=== PATIENT | female | born 1995 | race Caucasian/White ===

== ENCOUNTER 2023-08-28 03:23 | Inpatient (IN) | payer OTHER ==
[2023-08-28] VITALS (46 sets, daily range): BP systolic 90–138; BP diastolic 53–80; TEMP 98.6; O2SAT 96–98
[~2023-08-28] VITALS: Ht 157.5 cm; Wt 70.2 kg
[2023-08-28] MEDS ORDERED: PRENTAB9 PO (03:48)
[2023-08-28] MEDS ORDERED: HOME MED LIST COMPLETE! XX SCH (03:50)
[2023-08-28 04:58] LABS: HEMATOCRIT 34.1 % (36.0-47.0); HEMOGLOBIN 11.1 g/dl (12.0-15.5); MEAN CORPUSCULAR HEMOGLOBIN 26.9 pg (27.0-33.0); MEAN CORPUSCULAR HGB CONC 32.6 g/dl (32.0-36.5); MEAN CORPUSCULAR VOLUME 82.6 fl (80.0-96.0); PLATELET COUNT, AUTOMATED 276 10^3/uL (150-450); RED BLOOD COUNT 4.13 10^6/uL (4.00-5.40)
[2023-08-28] MEDS ORDERED: LACTATED RINGER'S 1000 ML IV STA (05:41)
[2023-08-28] MEDS ORDERED: LIDOCAINE 1% MDV 20ML VIAL INFIL PRN (05:45)
[2023-08-28] MEDS ORDERED: CARBOPROST TROMETHAMINE 250 MCG/ML AMP IM PRN (05:45)
[2023-08-28] MEDS ORDERED: LR 1,000 ML IV SCH ×2 (05:45→19:10)
[2023-08-28] MEDS ORDERED: OXYTOCIN INJ 10UNITS/ML 1ML VIAL IM PRN (05:45)
[2023-08-28] MEDS ORDERED: TRANEXAMIC ACID INJection 1,000 MG in NS 100 ML IV PRN (05:45)
[2023-08-28] MEDS ORDERED: OXYTOCIN DRIP 30 UNITS in IV 1 EA IV SCH ×2 (05:45→18:55)
[2023-08-28] MEDS ORDERED: METHYLERGONOVINE MALEATE 0.2MG/ML 1ML VIAL IM PRN ×2 (05:45→18:55)
[2023-08-28] MEDS ORDERED: OXYTOCIN INJ 10UNITS/ML 1ML VIAL IV PRN (05:45)
[2023-08-28] MEDS ORDERED: OXYTOCIN DRIP 30 UNITS in IV 1 EA IV PRN ×6 (05:45)
[2023-08-28] MEDS ORDERED: EPIDURAL/PCA KEYS XX PRN (05:55)
[2023-08-28] MEDS ORDERED: ONDANSETRON 4MG 2ML VIAL IV PRN ×3 (05:55→19:10)
[2023-08-28] MEDS ORDERED: diphenhydrAMINE 50MG/ML VIAL IV PRN ×2 (05:55→19:10)
[2023-08-28] MEDS ORDERED: ePHEDrine SULFATE 25 MG/5 ML(5MG/ML) SYRINGE IVP PRN (05:55)
[2023-08-28] MEDS ORDERED: NALOXONE INJ 0.4MG/1ML VIAL IV PRN ×3 (05:55→19:10)
[2023-08-28] MEDS ORDERED: LR 500 ML IV PRN (05:55)
[2023-08-28] MEDS: FENTANYL/ROPIVACAINE/NACL BAG 100 ML EPIDURAL SCH ×2 (06:29→14:13)
[2023-08-28] MEDS: LR 1,000 ML IV SCH ×4 (06:30→23:19)
[2023-08-28] MEDS ORDERED: ACETAMINOPHEN *IV* 1,000 MG in IV 1 EA IV ONE (14:00)
[2023-08-28] MEDS ORDERED: diphenhydrAMINE 50MG/ML VIAL IV ONE (14:15)
[2023-08-28] MEDS ORDERED: AZITHROMYCIN INJ 500 MG, VIAL MATE ADAPTER 1 EACH in NS 250 ML IV ONE (17:05)
[2023-08-28] MEDS ORDERED: ceFAZolin SOD 2 GM in IV 1 EA IV ONE (17:05)
[2023-08-28] MEDS ORDERED: BICITRA 30ML SOLN UDC PO ONE (17:10)
[2023-08-28] MEDS ORDERED: LIDOCAINE 2% W/EPINEPHRINE 20ML VIAL **PRES FREE As Ordered ONE (17:17)
[2023-08-28] MEDS ORDERED: ONDANSETRON 4MG 2ML VIAL As Ordered ONE (17:19)
[2023-08-28] MEDS ORDERED: KETOROLAC 60MG 2ML VIAL As Ordered ONE (17:19)
[2023-08-28] MEDS ORDERED: OXYTOCIN 30UNITS IN 0.9% NaCl 500ML IV BAG As Ordered ONE ×2 (17:21→19:04)
[2023-08-28] MEDS ORDERED: PHENYLephrine 500MCG 5ML (100MCG/ML) SYRINGE As Ordered ONE (17:50)
[2023-08-28 18:04] LABS: CORD GAS ABE A -2.4; CORD GAS HCO3 A 22.6 MMOL/L; CORD GAS O2 SAT A 78.4 %; CORD GAS PH A 7.37 UNITS; CORD GAS PO2 A 33.6 mmHg; CORD GAS TCO2 A 23.8 MMOL/L
[2023-08-28 18:05] LABS: CORD GAS ABE V -3.6; CORD GAS HCO3 V 21.2 MMOL/L; CORD GAS O2 SAT V 78.1 %; CORD GAS PCO2 V 37.8 mmHg; CORD GAS PH V 7.367 UNITS; CORD GAS PO2 V 33.5 mmHg; CORD GAS TCO2 V 22.4 MMOL/L
[2023-08-28] MEDS ORDERED: MORPHINE PRES-FREE INJ 10 MG/10 ML VIAL As Ordered ONE (18:07)
[2023-08-28] MEDS ORDERED: MEPERIDINE 50 MG/ML 1ML VIAL As Ordered ONE (18:34)
[2023-08-28] MEDS: ACETAMINOPHEN 500 MG TAB PO SCH ×2 (18:55→23:00)
[2023-08-28] MEDS ORDERED: RHOGAM 300MCG (1500IU) INJ IM SCH (18:55)
[2023-08-28] MEDS ORDERED: METOCLOPRAMIDE INJ 10MG/2ML VIAL IV PRN ×2 (18:55→19:10)
[2023-08-28] MEDS ORDERED: SIMETHICONE 80MG CHEW TAB PO PRN (18:55)
[2023-08-28] MEDS ORDERED: oxyCODONE 5MG TAB PO PRN ×3 (18:55→19:10)
[2023-08-28] MEDS ORDERED: fentaNYL 100 MCG/2 ML INJECTION IV PRN (19:10)
[2023-08-28] MEDS ORDERED: **NOTE PATIENT COMMENT** MISC XX SCH (19:10)
[2023-08-28] MEDS ORDERED: oxyCODONE 5MG TAB As Ordered ONE (20:20)
[2023-08-28] MEDS: SLF 3 ML SYR IV SCH (21:28)
[2023-08-28] MEDS: DOCUSATE SODIUM 100MG CAPSULE PO SCH (21:28)
[2023-08-28] MEDS: KETOROLAC 30 MG/ML 1ML VIAL IV SCH (23:19)
[2023-08-29] VITALS (7 sets, daily range): BP systolic 92–114; BP diastolic 55–62; O2SAT 97–99
[2023-08-29] MEDS: FENTANYL/ROPIVACAINE/NACL BAG 100 ML EPIDURAL SCH (01:55)
[2023-08-29] MEDS: SLF 3 ML SYR IV SCH ×2 (03:10→12:17)
[2023-08-29] MEDS: KETOROLAC 30 MG/ML 1ML VIAL IV SCH ×2 (05:32→12:16)
[2023-08-29] MEDS: LR 1,000 ML IV SCH ×2 (06:00→06:22)
[2023-08-29] MEDS: ACETAMINOPHEN 500 MG TAB PO SCH ×3 (06:22→18:13)
[2023-08-29 06:44] LABS: HEMATOCRIT 26.3 % (36.0-47.0); MEAN CORPUSCULAR HEMOGLOBIN 26.8 pg (27.0-33.0); MEAN CORPUSCULAR HGB CONC 32.3 g/dl (32.0-36.5); PLATELET COUNT, AUTOMATED 185 10^3/uL (150-450); RED BLOOD COUNT 3.17 10^6/uL (4.00-5.40); WHITE BLOOD COUNT 13.5 10^3/uL (4.0-10.0)
[2023-08-29 06:51] LABS: HEMOGLOBIN 8.5 g/dl (12.0-15.5)
[2023-08-29] MEDS: PRENATAL VITAMINS CHEWABLE TABLET PO SCH (09:06)
[2023-08-29] MEDS: DOCUSATE SODIUM 100MG CAPSULE PO SCH ×2 (09:06→20:34)
[2023-08-29] MEDS: IBUPROFEN 800 MG TAB PO SCH (20:34)
[2023-08-30] MEDS: ACETAMINOPHEN 500 MG TAB PO SCH ×2 (00:36→05:59)
[2023-08-30 02:00] VITALS: BP 107/65; O2SAT 99
[2023-08-30] MEDS: IBUPROFEN 800 MG TAB PO SCH (03:09)
[2023-08-30 06:00] VITALS: BP 102/63; O2SAT 99
[2023-08-30] MEDS ORDERED: MEASLES,MUMPS,RUBELLA VACCINE INJ (MMR-II) SC.IMMUN ONE (09:00)
[2023-08-30] MEDS ORDERED: COLA100C5 PO (09:38)
[2023-08-30] MEDS ORDERED: ACET-683 PO (09:38)
[2023-08-30] MEDS ORDERED: OXYC-517 PO (09:38)
[2023-08-30] MEDS ORDERED: IBUP80TA PO (09:38)
[2023-08-30] MEDS: PRENATAL VITAMINS CHEWABLE TABLET PO SCH (10:24)
[2023-08-30] MEDS: DOCUSATE SODIUM 100MG CAPSULE PO SCH (10:24)
== END 2023-08-30 11:40 | disposition home or self-care (01) | DRG 773 ==
LOC: M LDO 03:23 → M LDI 04:13 → M OBS 20:38
PROVIDERS: ADMIT Obstetrics & Gynecology; ATTEND Obstetrics & Gynecology
PROC: 10D00Z1 Extraction of Products of Conception, Low, Open Approach (ICD-10-PCS; principal; 2023-08-28 16:56)
DX: O62.0 Primary inadequate contractions (principal); Z37.0 Single live birth; Z3A.39 39 weeks gestation of pregnancy